=== PATIENT | male | born 1995 ===

== ENCOUNTER → 2020-08-10 09:20 | Outpatient (CLI) | payer OTHER, SELFPAY ==
[2020-08-10 11:32] LABS: COVID19 -Nasal RAPID Negative (Negative)
== END ==
PROVIDERS: Visit Provider Family Medicine Sleep Medicine
DX: Z20.822 Contact with and (suspected) exposure to COVID-19 (principal); G47.33 Obstructive sleep apnea (adult) (pediatric)
CPT/HCPCS: 87635; 95811